=== PATIENT | female | born 1990 | race Caucasian/White ===

== ENCOUNTER 2024-03-04 07:32 | Inpatient (IN) | payer OTHER ==
[~2024-03-04] VITALS: Ht 172.7 cm; Wt 76.8 kg
[2024-03-04 08:34] LABS: BASOPHILS % 0.6 % (0.0-2.0); EOSINOPHILS % 0.7 % (0.0-5.0); HEMATOCRIT. 39.6 % (36.0-48.0); HEMOGLOBIN. 13.1 g/dL (12.0-16.0); LYMPHOCYTES % 12.8 % (20.0-50.0); MEAN CORPUSCULAR HEMOGLOBIN 27.9 pg (28.0-32.0); MEAN CORPUSCULAR HGB CONC 33.1 g/dL (31.0-37.0); MEAN CORPUSCULAR VOLUME 84.4 fL (81.0-99.0); MEAN PLATELET VOLUME 8.8 fl (7.4-10.4); MONOCYTES % 3.1 % (2.0-8.0); NEUTROPHILS % 82.8 % (40.0-76.0); PLATELET 317 x1000/uL (130-400); RED CELL DISTRIBUTION WIDTH 14.7 % (11.6-14.6); WHITE BLOOD COUNT 6.4 x1000/uL (4.5-11.0)
[2024-03-04] MEDS: SODIUM CHLORIDE 0.9% 1,000 ML IV ONE ×2 (08:38→13:14)
[2024-03-04] MEDS: FAMOTIDINE 20MG/2ML VIAL IV ONE (08:42)
[2024-03-04] MEDS: ONDANSETRON HCL 4MG/2ML INJ IV ONE ×2 (08:42→13:12)
[2024-03-04 08:59] LABS: CHLORIDE 108 mEq/L (98-107); POTASSIUM 4.4 mEq/L (3.5-5.1)
[2024-03-04 09:00] LABS: SODIUM 139 mEq/L (136-145)
[2024-03-04 09:01] LABS: CALCIUM 10.2 mg/dL (8.7-10.4); CARBON DIOXIDE 25 mEq/L (21-32)
[2024-03-04 09:06] LABS: CREATININE 0.9 mg/dL (0.6-1.0); GLUCOSE 107 mg/dL (70-105); UREA NITROGEN BLOOD 12 mg/dL (9-23)
[2024-03-04 09:19] LABS: HCG SCREEN NEGATIVE
[2024-03-04 09:21] LABS: CLARITY URINE CLOUDY (CLEAR); COLOR URINE YELLOW (YELLOW); GLUCOSE URINE NEGATIVE (NEGATIVE); KETONES URINE NEGATIVE (NEGATIVE); LEUKOCYTE ESTERASE URINE NEGATIVE (NEGATIVE); NITRITE URINE NEGATIVE (NEGATIVE); OCCULT BLOOD URINE NEGATIVE (NEGATIVE); PH URINE 8.5 (4.5-8.0); PROTEIN URINE NEGATIVE (NEGATIVE); SPECIFIC GRAVITY URINE 1.017 (1.005-1.030); UROBILINOGEN URINE 0.2 E.U./dL (0.2-1.0)
[2024-03-04 09:31] LABS: AMORPHOUS SEDIMENT URINE 1+ /lpf; SQUAMOUS EPITHELIAL CELL URINE 1+ /lpf (RARE/1+)
[2024-03-04 09:32] LABS: BACTERIA URINE 3+
[2024-03-04 09:33] LABS: RBC URINE NONE SEEN /hpf (0-2); WBC URINE 0-2 /hpf (0-2)
[2024-03-04] MEDS ORDERED: IOHEXOL-300 100 ML BOTTLE ONE (11:00)
[2024-03-04] MEDS: KETOROLAC 30MG/ML VIAL IV NR (11:53)
[2024-03-04] MEDS: MORPHINE SULFATE 2 MG/ML CPJ (NOT FOR IM USE) IV ONE (13:13)
[2024-03-04] MEDS ORDERED: IPRATROPIUM/ALBUTEROL 0.5-3(2.5)MG/3ML NEB HHN PRN (13:30)
[2024-03-04] MEDS ORDERED: NALOXONE HCL 0.4MG/ML VIAL IV PRN (13:45)
[2024-03-04] MEDS: SODIUM CHLORIDE 0.9% 1,000 ML IV SCH (14:30)
[2024-03-04] MEDS: MORPHINE SULFATE 4 MG/ML INJ (FOR IV/IM USE) IV PRN (15:11)
[2024-03-04 16:00] VITALS: BP 115/68; PULSE 61; RESP 19; TEMP 98.1
[2024-03-04 16:26] VITALS: PULSE 58; RESP 18; TEMP 96
[2024-03-04 18:21] VITALS: BP 115/68; PULSE 61; RESP 19; TEMP 98.1
[2024-03-04] MEDS ORDERED: TOPA25 PO (19:10)
[2024-03-04] MEDS ORDERED: CITA40TA22 PO (19:10)
[2024-03-04 20:00] VITALS: BP 99/66; PULSE 66; RESP 19; TEMP 97.5
[2024-03-04] MEDS ORDERED: PNEUMOCOCCAL 23-VAL P-SAC VAC 0.5 ML IM ONE (22:30)
[2024-03-04] MEDS ORDERED: INFLUENZA VACCINE 05/PF 0.5 ML SYRINGE IM ONE (22:30)
[2024-03-05] VITALS: BP 103/57; PULSE 66; RESP 18; TEMP 97.6
[2024-03-05] MEDS: ONDANSETRON HCL 4MG/2ML INJ IV PRN (03:27)
[2024-03-05 04:00] VITALS: BP 98/55; PULSE 60; RESP 18; TEMP 97.6
[2024-03-05 08:00] VITALS: BP 93/42; PULSE 74; RESP 20; TEMP 98
[2024-03-05 08:14] LABS: BASOPHILS % 0.4 % (0.0-2.0); EOSINOPHILS % 1.8 % (0.0-5.0); HEMATOCRIT. 32.6 % (36.0-48.0); HEMOGLOBIN. 10.8 g/dL (12.0-16.0); LYMPHOCYTES % 19.7 % (20.0-50.0); MEAN CORPUSCULAR HEMOGLOBIN 29.1 pg (28.0-32.0); MEAN CORPUSCULAR HGB CONC 33.2 g/dL (31.0-37.0); MEAN CORPUSCULAR VOLUME 87.9 fL (81.0-99.0); MEAN PLATELET VOLUME 8.8 fl (7.4-10.4); MONOCYTES % 4.6 % (2.0-8.0); NEUTROPHILS % 73.5 % (40.0-76.0); PLATELET 219 x1000/uL (130-400); RED BLOOD CELL COUNT 3.71 mill/uL (4.2-5.4); RED CELL DISTRIBUTION WIDTH 14.8 % (11.6-14.6); WHITE BLOOD COUNT 4.2 x1000/uL (4.5-11.0)
[2024-03-05 08:15] LABS: CHLORIDE 113 mEq/L (98-107); POTASSIUM 3.6 mEq/L (3.5-5.1); SODIUM 141 mEq/L (136-145)
[2024-03-05 08:16] LABS: CALCIUM 8.1 mg/dL (8.7-10.4); CARBON DIOXIDE 21 mEq/L (21-32)
[2024-03-05 08:21] LABS: CREATININE 0.6 mg/dL (0.6-1.0); GLUCOSE 97 mg/dL (70-105)
[2024-03-05 08:22] LABS: UREA NITROGEN BLOOD 10 mg/dL (9-23)
[2024-03-05 08:23] LABS: ALANINE AMINOTRANSFERASE 14 IU/L (10-49); ALBUMIN 3.7 g/dL (3.2-4.8); ASPARTATE AMINOTRANSFERASE 17 IU/L (<34)
[2024-03-05 08:24] LABS: BILIRUBIN TOTAL 0.5 mg/dL (0.1-1.0); PROTEIN TOTAL 6.3 g/dL (6.0-8.3)
[2024-03-05] MEDS ORDERED: RIZA5TAB16 MT (08:46)
[2024-03-05] MEDS: CITALOPRAM HYDROBROMIDE 10MG TABLET PO SCH (11:04)
[2024-03-05 12:00] VITALS: BP 108/77; PULSE 77; RESP 18
[2024-03-05 16:00] VITALS: BP 90/45; PULSE 77; RESP 20; TEMP 98.3
[2024-03-05] MEDS: ACETAMINOPHEN 325MG TABLET PO PRN (18:35)
[2024-03-05 20:00] VITALS: BP 104/65; PULSE 68; RESP 18; TEMP 97.8
[2024-03-06 04:00] VITALS: BP_SYST 107; BP_SYST 130; BP_DIAS 59; BP_DIAS 71; PULSE 63; PULSE 97; RESP 16; RESP 18; TEMP 97.8; TEMP 97.9
[2024-03-06] MEDS: TOPIRAMATE 25MG TABLET PO SCH (08:12)
[2024-03-06] MEDS: SUMATRIPTAN SUCCINATE 25MG TABLET PO PRN (08:13)
[2024-03-06] MEDS ORDERED: TOPIRAMATE 25MG TABLET PO SCH (09:00)
[2024-03-06 11:47] VITALS: BP 100/60; PULSE 65; TEMP 97.9; O2SAT 100
[2024-03-06 12:00] VITALS: BP 123/60; PULSE 78; RESP 20; TEMP 97.9
== END 2024-03-06 15:30 | disposition home or self-care (01) | DRG 390 ==
LOC: ER 07:32 → 6WST 12:58 → EDBEDREQ 13:02 → EDBEDREQTM 13:02
PROVIDERS: ADMIT Internal Medicine; ATTEND Internal Medicine
DX: K56.600 Partial intestinal obstruction, unspecified as to cause (principal); Z98.84 Bariatric surgery status; J45.909 Unspecified asthma, uncomplicated
CPT/HCPCS: 36415; 74018; 74177; 80048; 80053; 81003; 84703; 85025; 99285; J1885; J2270; J2405; J3490; J7030; Q9967